=== PATIENT | male | born 1990 | race Hispanic/Latino ===

== ENCOUNTER 2017-02-19 14:34 | Observation (INO) | payer OTHER ==
[2017-02-19] MEDS ORDERED: Sodium Chloride 0.9% 1,000 ML IV STA (15:41)
--- NOTE | 2017-02-19 15:46 | ED PDOC ---
HPI: Chest Pain Time Seen by Provider: 02/19/17 15:33 Chief Complaint (Nursing): Palpitations Chief Complaint (Provider): Chest tightness and palpitations History Per: Patient History/Exam Limitations: no limitations Onset/Duration Of Symptoms: Hrs Additional Complaint(s): Patient is a 26 y/o male with no significant past medical history presenting to the emergency department for chest tightness and palpitations since this morning. Reports taking an additional 50 mg dose of Adderall in order to complete a work project. Denies suicidal ideation, other ingestions, or other complaints. PCP: none provided. Past Medical History Reviewed: Historical Data, Nursing Documentation, Vital Signs Vital Signs: Last Vital Signs Temp 97.2 F L 02/19/17 14:50 Pulse 113 H 02/19/17 14:50 Resp 16 02/19/17 14:50 BP 124/78 02/19/17 14:50 Pulse Ox 97 02/19/17 15:49 - Medical History PMH: No Chronic Diseases - Surgical History Surgical History: No Surg Hx - Family History Family History: States: Unknown Family Hx - Home Medications Home Medications: Ambulatory Orders Medication Instructions Recorded Dextroamphetamine/Amphetamine 20 mg PO DAILY 02/19/17 [Adderall Xr 20 mg Capsule] Finasteride [Propecia] 1 mg PO DAILY 02/19/17 Ibuprofen [Motrin Tab] 800 mg PO Q8H PRN 02/19/17 - Allergies Allergies/Adverse Reactions: Allergies Allergy/AdvReac Type Severity Reaction Status Date / Time No Known Allergies Allergy Verified 02/19/17 14:50 Review of Systems ROS Statement: Except As Marked, All Systems Reviewed And Found Negative Cardiovascular: Positive for: Chest Pain (tightness), Palpitations Psych: Negative for: Suicidal ideation Physical Exam - Reviewed Nursing Documentation Reviewed: Yes Vital Signs Reviewed: Yes - Physical Exam Appears: Positive for: Well, Non-toxic, No Acute Distress Head Exam: Positive for: ATRAUMATIC, NORMAL INSPECTION, NORMOCEPHALIC Skin: Positive for: Normal Color, Warm, Dry Eye Exam: Positive for: Normal appearance Neck: Positive for: Normal Cardiovascular/Chest: Positive for: Regular Rate, Rhythm. Negative for: Murmur Respiratory: Positive for: Normal Breath Sounds. Negative for: Accessory Muscle Use, Respiratory Distress Gastrointestinal/Abdominal: Positive for: Normal Exam, Soft. Negative for: Tenderness Extremity: Positive for: Normal ROM. Negative for: Pedal Edema, Swelling Neurologic/Psych: Positive for: Alert, Oriented (x3). Negative for: Motor/ Sensory Deficits - Laboratory Results Result Diagrams: 02/19/17 16:13 02/19/17 16:13 - ECG O2 Sat by Pulse Oximetry: 97 (RA) Pulse Ox Interpretation: Normal Medical Decision Making Medical Decision Making: Time: 1539 Initial Impression: Chest tightness and palpitations Initial Plan: EKG Acetaminophen CMP Urine Drug Screening Salicylate Troponin ED Urine Dipstick CBC Prothrombin Chest x-ray Normal Saline 1 L IV Reevaluation Scribe Attestation: Documented by Renay Love, acting as a scribe for Pranav Wiggins MD. Provider Scribe Attestation: All medical record entries made by the Scribe were at my direction and personally dictated by me. I have reviewed the chart and agree that the record accurately reflects my personal performance of the history, physical exam, medical decision making, and the department course for this patient. I have also personally directed, reviewed, and agree with the discharge instructions and disposition. Disposition - Clinical Impression Clinical Impression: Chest pain - Patient ED Disposition Is Patient to be Admitted: Yes - Disposition Disposition Time: 17:05 Condition: FAIR Forms: [employer] (Estonian) - Pt Status Changed To: Hospital Disposition Of: Observation - POA Present On Arrival: None
[2017-02-19 16:38] LABS: BASO # 0.1 K/uL (0.0-0.2); EOS # 0.1 K/uL (0.0-0.7); EOS % 1.9 % (0.0-4.0); HEMATOCRIT 47.2 % (35.0-51.0); LYMPH # 2.6 K/uL (1.0-4.3); LYMPH % 34.2 % (20.0-40.0); MEAN CELL VOLUME 88.5 fl (80.0-94.0); MEAN CORPUSCULAR HEMOGLOBIN 30.3 pg (27.0-31.0); MEAN CORPUSCULAR HGB CONC 34.3 g/dL (33.0-37.0); MEAN PLATELET VOLUME 7.3 fl (7.2-11.7); MONO # 0.7 K/uL (0.0-0.8); MONO % 8.7 % (0.0-10.0); NEUT # 4.1 K/uL (1.8-7.0); NEUT % 54.2 % (50.0-75.0); NRBC % 0.1 % (0.0-0.0); RED CELL DISTRIBUTION WIDTH 12.9 % (11.5-14.5); WHITE BLOOD COUNT 7.6 K/uL (4.8-10.8)
[2017-02-19 16:50] LABS: ALCOHOL SERUM < 10 mg/dl (0-10); ALKALINE PHOSPHATASE 78 U/L (38-126); ALT/SGPT 37 U/L (21-72); AST/SGOT 34 U/L (17-59); BILIRUBIN,TOTAL 1.2 mg/dl (0.2-1.3); BLOOD UREA NITROGEN 25 mg/dl (9-20); CALCIUM 10.4 mg/dL (8.4-10.2); CARBON DIOXIDE 27 mmol/L (22-30); CHLORIDE 98 mmol/L (98-107); GFR AFRICAN-AMERICAN > 60; GLUCOSE,RANDOM 90 mg/dL (75-110); POTASSIUM 4.1 MMOL/L (3.6-5.0); SODIUM 140 mmol/l (132-148); TOTAL PROTEIN 8.7 G/DL (6.3-8.2)
[2017-02-19 17:18] LABS: ALB/GLOB RATIO 1.4 (1.0-2.1)
--- NOTE | 2017-02-19 20:54 | CON ---
CARDIOLOGY CONSULTATION REASON FOR CONSULTATION: Chest discomfort. HISTORY OF PRESENT ILLNESS: The patient is 26 years old white male who takes Adderall for attention deficit disorder 20 mg pill daily. 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 The patient felt palpitation and skipped beats with chest discomfort and presented to the emergency room. The patient is unaware of any prior cardiac history. The patient does not take any other medications except finasteride for hair loss. The patient does not take any unusual large amount of caffeine. SOCIAL HISTORY: The patient is a nonsmoker, nondrinker. He is single. He works with [employer]. MEDICATIONS: The patient is currently on normal saline infusion at 200 mL an hour. Home medications include finasteride 1 mg orally daily, Adderall 20 mg daily and ibuprofen 800 mg q. 8 hours p.r.n. REVIEW OF SYSTEMS: No nausea or vomiting. No fever or chills. No syncope or fall. PHYSICAL EXAMINATION: GENERAL: The patient is a young male, who does not appear to be in any distress. VITAL SIGNS: Blood pressure 124/78, heart rate 113, temperature 97.2, respirations 16. HEENT: Normocephalic. NECK: No JVD. CHEST: Clear. HEART: S1 and S2 regular. ABDOMEN: Soft. EXTREMITIES: No edema. LABORATORY DATA: CBC: WBC 7.6, hemoglobin 16.2, hematocrit 47.2, platelet count 181,000. SMA-7: Sodium 140, potassium 4.1, chloride 98, CO2 of 27, glucose 90, BUN 25, creatinine 1.1. One set of troponin is negative. PT and INR are within normal limit. EKG revealed sinus rhythm at a rate of 65 with sinus arrhythmia, possible left atrial enlargement, early repolarization pattern. ASSESSMENT: 1. Sinus tachycardia. This has improved after hydration. 2. Overdose of Adderall. Already the patient took a total of 5 tablets of 20 mg tablets and instead of once a day over the past 24 hours. 3. Atypical chest pain. RECOMMENDATIONS: Continue current IV hydration. Obtain urine for drug screen and schedule the patient for an echocardiogram. Continue telemetry monitoring overnight. Adriano Morris MD
[2017-02-20 05:57] LABS: HEMATOCRIT 42.6 % (35.0-51.0); MEAN CELL VOLUME 89.6 fl (80.0-94.0); MEAN CORPUSCULAR HGB CONC 33.5 g/dL (33.0-37.0); RED CELL DISTRIBUTION WIDTH 12.7 % (11.5-14.5); WHITE BLOOD COUNT 6.1 K/uL (4.8-10.8)
[2017-02-20 06:19] LABS: BLOOD UREA NITROGEN 20 mg/dl (9-20); CARBON DIOXIDE 28 mmol/L (22-30); CHLORIDE 104 mmol/L (98-107); GFR AFRICAN-AMERICAN > 60; GLUCOSE,RANDOM 90 mg/dL (75-110); POTASSIUM 4.1 MMOL/L (3.6-5.0); SODIUM 141 mmol/l (132-148)
[2017-02-20 06:48] LABS: THYROID STIMULATING HORMONE 1.56 mIU/ML (0.46-4.68)
[2017-02-20 08:23] VITALS: RESP 20
--- NOTE | 2017-02-20 08:42 | CARD ---
APPROVED REPORT EKG Measurement Heart [id number] 150P76 [id number] <Conclusion> Normal sinus rhythm Rightward axis Early repolarization Borderline ECG
--- NOTE | 2017-02-20 08:50 | CARD ---
APPROVED REPORT EKG Measurement Heart [id number] SD 140P78 [id number] <Conclusion> Sinus rhythm with marked sinus arrhythmia Possible Left atrial enlargement Rightward axis ST elevation, consider early repolarization, pericarditis, or injury Nonspecific ST abnormality Abnormal ECG
--- NOTE | 2017-02-20 08:54 | RAD ---
HISTORY: chest pain COMPARISON: No prior. TECHNIQUE: Chest PA and lateral FINDINGS: LUNGS: No active pulmonary disease. PLEURA: No significant pleural effusion identified. No pneumothorax apparent. CARDIOVASCULAR: Normal. OSSEOUS STRUCTURES: No significant abnormalities. VISUALIZED UPPER ABDOMEN: Normal. OTHER FINDINGS: None. IMPRESSION: No acute cardiopulmonary disease appreciated.
--- NOTE | 2017-02-20 11:57 | CP.PCM.HP ---
History of Present Illness - History of Present Illness History of Present Illness: CC: Chest Pain HPI: a 26 y/o male with no significant past medical history presenting to the emergency department for chest tightness and palpitations since this morning. Reports taking an additional 50 mg dose of Adderall in order to complete a work project. Denies suicidal ideation, other ingestions, or other complaints. ACS Ruled out. Present on Admission - Present on Admission Any Indicators Present on Admission: No Review of Systems - Review of Systems All systems: reviewed and no additional remarkable complaints except Past Patient History - Past Medical History & Family History Past Medical History?: Yes Past Family History: Reviewed and not pertinent - Past Social History Smoking Status: Never Smoked Alcohol: None Drugs: Denies - NEUROLOGICAL Other/Comment: ADHD - MUSCULOSKELETAL/RHEUMATOLOGICAL Hx Falls: No - PSYCHIATRIC Hx Substance Use: Yes (cocaine) Other/Comment: ADHD - SURGICAL HISTORY Other/Comment: Rhinoplasty - ANESTHESIA Hx Anesthesia: Yes Hx Anesthesia Reactions: No Meds Allergies/Adverse Reactions: Allergies Allergy/AdvReac Type Severity Reaction Status Date / Time No Known Allergies Allergy Verified 02/19/17 14:50 Physical Exam - Constitutional Appears: Well, No Acute Distress - Head Exam Head Exam: ATRAUMATIC, NORMAL INSPECTION, NORMOCEPHALIC - Eye Exam Eye Exam: EOMI, Normal appearance, PERRL Pupil Exam: NORMAL ACCOMODATION, PERRL - ENT Exam ENT Exam: Mucous Membranes Moist, Normal Exam - Neck Exam Neck exam: Positive for: Full Rom, Normal Inspection - Respiratory Exam Respiratory Exam: Clear to Auscultation Bilateral, NORMAL BREATHING PATTERN - Cardiovascular Exam Cardiovascular Exam: REGULAR RHYTHM, +S1, +S2 - GI/Abdominal Exam GI & Abdominal Exam: Normal Bowel Sounds, Soft. absent: Tenderness - Back Exam Back exam: NORMAL INSPECTION. absent: CVA tenderness (L), CVA tenderness (R) - Neurological Exam Neurological exam: Alert, CN II-XII Intact, Normal Gait, Oriented x3, Reflexes Normal - Psychiatric Exam Psychiatric exam: Normal Affect, Normal Mood - Skin Skin Exam: Dry, Intact, Normal Color, Warm Results - Vital Signs Recent Vital Signs: Last Vital Signs Temp 97.9 F 02/20/17 08:00 Pulse 66 02/20/17 08:00 Resp 20 02/20/17 08:00 BP 103/64 02/20/17 08:00 Pulse Ox 99 02/20/17 08:00 - Labs Result Diagrams: 02/20/17 05:00 02/20/17 05:00 Labs: Laboratory Results - last 24 hr 02/19/17 02/19/17 02/19/17 16:13 16:13 16:13 WBC 7.6 RBC 5.33 Hgb 16.2 Hct 47.2 MCV 88.5 MCH 30.3 MCHC 34.3 RDW 12.9 Plt Count 281 MPV 7.3 Neut % (Auto) 54.2 Lymph % (Auto) 34.2 [place] % (Auto) 8.7 Eos % (Auto) 1.9 Baso % (Auto) 1.0 Neut # 4.1 Lymph # 2.6 [place] # 0.7 Eos # 0.1 Baso # 0.1 PT INR Sodium 140 Potassium 4.1 Chloride 98 Carbon Dioxide 27 Anion Gap 19 BUN 25 H Creatinine 1.1 Est GFR ( Amer) > 60 Est GFR (Non-Af Amer) > 60 Random Glucose 90 Calcium 10.4 H Total Bilirubin 1.2 AST 34 ALT 37 Alkaline Phosphatase 78 Troponin I < 0.0120 Total Protein 8.7 H Albumin 5.1 H Globulin 3.7 Albumin/Globulin Ratio 1.4 TSH 3rd Generation Salicylates Urine Opiates Screen Negative Urine Methadone Screen Negative Acetaminophen Ur Barbiturates Screen Negative Ur Phencyclidine Scrn Negative Ur Amphetamines Screen Positive H U Benzodiazepines Scrn Negative U Oth Cocaine Metabols Negative U Cannabinoids Screen Negative Alcohol, Quantitative < 10 02/19/17 02/19/17 02/20/17 16:13 16:13 00:30 WBC RBC Hgb Hct MCV MCH MCHC RDW Plt Count MPV Neut % (Auto) Lymph % (Auto) [place] % (Auto) Eos % (Auto) Baso % (Auto) Neut # Lymph # [place] # Eos # Baso # PT 12.8 INR 1.2 Sodium Potassium Chloride Carbon Dioxide Anion Gap BUN Creatinine Est GFR ( Amer) Est GFR (Non-Af Amer) Random Glucose Calcium Total Bilirubin AST ALT Alkaline Phosphatase Troponin I < 0.0120 Total Protein Albumin Globulin Albumin/Globulin Ratio TSH 3rd Generation Salicylates < 1.0 Urine Opiates Screen Urine Methadone Screen Acetaminophen < 10.0 L Ur Barbiturates Screen Ur Phencyclidine Scrn Ur Amphetamines Screen U Benzodiazepines Scrn U Oth Cocaine Metabols U Cannabinoids Screen Alcohol, Quantitative 02/20/17 02/20/17 02/20/17 05:00 05:00 09:00 WBC 6.1 RBC 4.75 Hgb 14.2 D Hct 42.6 MCV 89.6 MCH 30.0 MCHC 33.5 RDW 12.7 Plt Count 230 MPV Neut % (Auto) Lymph % (Auto) [place] % (Auto) Eos % (Auto) Baso % (Auto) Neut # Lymph # [place] # Eos # Baso # PT INR Sodium 141 Potassium 4.1 Chloride 104 Carbon Dioxide 28 Anion Gap 13 BUN 20 Creatinine 0.9 Est GFR ( Amer) > 60 Est GFR (Non-Af Amer) > 60 Random Glucose 90 Calcium 9.0 Total Bilirubin AST ALT Alkaline Phosphatase Troponin I < 0.0120 Total Protein Albumin Globulin Albumin/Globulin Ratio TSH 3rd Generation 1.56 Salicylates Urine Opiates Screen Urine Methadone Screen Acetaminophen Ur Barbiturates Screen Ur Phencyclidine Scrn Ur Amphetamines Screen U Benzodiazepines Scrn U Oth Cocaine Metabols U Cannabinoids Screen Alcohol, Quantitative - EKG Data EKG Interpreted by: Myself EKG shows normal: Sinus rhythm - EKG Data EKG comments: ?Repolarization. - Imaging and Cardiology Chest x-ray Status: Report reviewed by me Additional comment: IMPRESSION: No acute cardiopulmonary disease appreciated. Assessment & Plan (1) Chest pain Assessment and Plan: ACS ruled out Abnormal EKG Echocadiogram Telemonitoring Status: Acute (2) ADHD Assessment and Plan: [place] Continue to Status: Acute
[2017-02-20 13:32] VITALS: BP 99/58; PULSE 59; TEMP 98.1; O2SAT 95
--- NOTE | 2017-02-20 14:08 | CARD ---
APPROVED REPORT EXAM: Two-dimensional and M-mode echocardiogram with Doppler and color Doppler. Other Information Quality : GoodRhythm : NSR INDICATION Palpitations 2D DIMENSIONS IVSd1.23 (0.7-1.1cm)LVDd3.99 (3.9-5.9cm) LVOT Diameter2.04 (1.8-2.4cm)PWd0.96 (0.7-1.1cm) IVSs0.90 (0.8-1.2cm)LVDs4.20 (2.5-4.0cm) FS (%) 5.3 %PWs0.78 (0.8-1.2cm) M-Mode DIMENSIONS Left Atrium (MM)3.64 (2.5-4.0cm)IVSd0.88 (0.7-1.1cm) Aortic Root2.78 (2.2-3.7cm)LVDd4.99 (4.0-5.6cm) Aortic Cusp Exc.2.15 (1.5-2.0cm)PWd0.77 (0.7-1.1cm) IVSs1.35 cmFS (%) 41 % LVDs2.95 (2.0-3.8cm)PWs1.41 cm Mitral Valve E/A ratio0.0 TDI E/Lateral E'0.0E/Medial E'0.0 Pulmonary Valve PV Peak Ybivncly709.6cm/s Tricuspid Valve TR Peak [id number] [id number] Peak Gr.14mmHg [id number] LEFT VENTRICLE The left ventricle is normal in size. There is normal left ventricular wall thickness. The left ventricular function is normal. The left ventricular ejection fraction is - 60%. There is normal LV segmental wall motion. The left ventricular diastolic function is normal. No left ventricle thrombus noted on this study. There is no ventricular septal defect visualized. There is no left ventricular aneurysm. There is no mass noted in the left ventricle. RIGHT VENTRICLE The right ventricle is normal size. There is normal right ventricular wall thickness. The right ventricular systolic function is normal. ATRIA The left atrium size is normal. There is no thrombus suspected in the left atrium. The right atrium size is normal. The interatrial septum is intact with no evidence for an atrial septal defect. AORTIC VALVE The aortic valve is normal in structure. No aortic regurgitation is present. There is no aortic valvular stenosis. There is no aortic valvular vegetation. MITRAL VALVE The mitral valve is normal in structure. There is no evidence of mitral valve prolapse. There is no mitral valve stenosis. Mitral regurgitation is trace. TRICUSPID VALVE The tricuspid valve is normal in structure. There is trace tricuspid regurgitation. Right ventricular systolic pressure is estimated at 23 mmHg. There is no tricuspid valve prolapse or vegetation. There is no tricuspid valve stenosis. PULMONIC VALVE The pulmonary valve is normal in structure. There is no pulmonic valvular regurgitation. GREAT VESSELS The aortic root is normal in size. The IVC is normal in size and collapses >50% with inspiration. PERICARDIAL EFFUSION The pericardium appears normal. There is no pleural effusion. <Conclusion> The left ventricle is normal in size and wall thickness. The left ventricular function is normal. The left ventricular ejection fraction is - 60%. The left atrium, right ventricle and right atrium are normal in size. The mitral, aortic and tricuspid valves are normal. There is trace mitral regurgitation and trace tricuspid regurgitation.
--- NOTE | 2017-02-20 14:36 | PN ---
DATE: SUBJECTIVE: The patient denies any chest pain or palpitation. No reported arrhythmia. PHYSICAL EXAMINATION: VITAL SIGNS: Blood pressure 103/64, heart rate 66, temperature 97.9, respirations 20. HEENT: Normocephalic. NECK: No JVD. CHEST: Clear. HEART: S1 and S2, regular. ABDOMEN: Soft. EXTREMITIES: No edema. LABORATORY DATA: Urine drug screen is positive for amphetamines, which could be related to the patient's medication, Adderall. Today's SMA-7 is entirely within normal limits. Three sets of troponins are negative. Today's CBC is within normal limits. Today's EKG could not be accessed on the [facility]. ASSESSMENT: 1. Atypical chest pain, myocardial infarction was ruled out. 2. Status post overdose on Adderall. RECOMMENDATIONS: Continue current telemetry observation. We will review today's EKG once it is accessible on [facility] and follow up echocardiographic study once it is performed. Adriano Morris MD
--- NOTE | 2017-02-21 09:02 | CARD ---
APPROVED REPORT EKG Measurement Heart [id number] DE 148P74 [id number] <Conclusion> Normal sinus rhythm with sinus arrhythmia Rightward axis ST elevation, consider early repolarization, pericarditis, or injury Nonspecific ST abnormality Abnormal ECG
--- NOTE | 2017-02-22 01:04 | CP.PCM.DIS ---
Provider - Provider Date of Admission: 02/19/17 16:51 Attending physician: Dinesh Lares MD Time Spent in preparation of Discharge (in minutes): 25 Diagnosis - Discharge Diagnosis (1) Chest pain Status: Acute (2) ADHD Status: Acute Hospital Course - Lab Results Lab Results: Most Recent Lab Values WBC 6.1 K/uL (4.8-10.8) 02/20/17 05:00 RBC 4.75 Mil/uL (4.40-5.90) 02/20/17 05:00 Hgb 14.2 g/dL (12.0-18.0) D 02/20/17 05:00 Hct 42.6 % (35.0-51.0) 02/20/17 05:00 MCV 89.6 fl (80.0-94.0) 02/20/17 05:00 MCH 30.0 pg (27.0-31.0) 02/20/17 05:00 MCHC 33.5 g/dL (33.0-37.0) 02/20/17 05:00 RDW 12.7 % (11.5-14.5) 02/20/17 05:00 Plt Count 230 K/uL (130-400) 02/20/17 05:00 MPV 7.3 fl (7.2-11.7) 02/19/17 16:13 Neut % (Auto) 54.2 % (50.0-75.0) 02/19/17 16:13 Lymph % (Auto) 34.2 % (20.0-40.0) 02/19/17 16:13 [place] % (Auto) 8.7 % (0.0-10.0) 02/19/17 16:13 Eos % (Auto) 1.9 % (0.0-4.0) 02/19/17 16:13 Baso % (Auto) 1.0 % (0.0-2.0) 02/19/17 16:13 Neut # 4.1 K/uL (1.8-7.0) 02/19/17 16:13 Lymph # 2.6 K/uL (1.0-4.3) 02/19/17 16:13 [place] # 0.7 K/uL (0.0-0.8) 02/19/17 16:13 Eos # 0.1 K/uL (0.0-0.7) 02/19/17 16:13 Baso # 0.1 K/uL (0.0-0.2) 02/19/17 16:13 PT 12.8 Seconds (9.8-13.1) 02/19/17 16:13 INR 1.2 (0.9-1.2) 02/19/17 16:13 Sodium 141 mmol/l (132-148) 02/20/17 05:00 Potassium 4.1 MMOL/L (3.6-5.0) 02/20/17 05:00 Chloride 104 mmol/L (98-107) 02/20/17 05:00 Carbon Dioxide 28 mmol/L (22-30) 02/20/17 05:00 Anion Gap 13 (10-20) 02/20/17 05:00 BUN 20 mg/dl (9-20) 02/20/17 05:00 Creatinine 0.9 mg/dl (0.8-1.5) 02/20/17 05:00 Est GFR ( Amer) > 60 02/20/17 05:00 Est GFR (Non-Af Amer) > 60 02/20/17 05:00 Random Glucose 90 mg/dL (75-110) 02/20/17 05:00 Calcium 9.0 mg/dL (8.4-10.2) 02/20/17 05:00 Total Bilirubin 1.2 mg/dl (0.2-1.3) 02/19/17 16:13 AST 34 U/L (17-59) 02/19/17 16:13 ALT 37 U/L (21-72) 02/19/17 16:13 Alkaline Phosphatase 78 U/L (38-126) 02/19/17 16:13 Troponin I < 0.0120 ng/mL (0.00-0.120) 02/20/17 09:00 Total Protein 8.7 G/DL (6.3-8.2) H 02/19/17 16:13 Albumin 5.1 g/dL (3.5-5.0) H 02/19/17 16:13 Globulin 3.7 gm/dL (2.2-3.9) 02/19/17 16:13 Albumin/Globulin Ratio 1.4 (1.0-2.1) 02/19/17 16:13 TSH 3rd Generation 1.56 mIU/ML (0.46-4.68) 02/20/17 05:00 Salicylates < 1.0 mg/dl 02/19/17 16:13 Urine Opiates Screen Negative (NEGATIVE) 02/19/17 16:13 Urine Methadone Screen Negative (NEGATIVE) 02/19/17 16:13 Acetaminophen < 10.0 ug/ml (10.0-30.0) L 02/19/17 16:13 Ur Barbiturates Screen Negative (NEGATIVE) 02/19/17 16:13 Ur Phencyclidine Scrn Negative (NEGATIVE) 02/19/17 16:13 Ur Amphetamines Screen Positive (NEGATIVE) H 02/19/17 16:13 U Benzodiazepines Scrn Negative (NEGATIVE) 02/19/17 16:13 U Oth Cocaine Metabols Negative (NEGATIVE) 02/19/17 16:13 U Cannabinoids Screen Negative (NEGATIVE) 02/19/17 16:13 Alcohol, Quantitative < 10 mg/dl (0-10) 02/19/17 16:13 Discharge Exam - Head Exam Head Exam: ATRAUMATIC, NORMAL INSPECTION, NORMOCEPHALIC Discharge Plan - Follow Up Plan Condition: STABLE Disposition: HOME/ ROUTINE Patient education suggested?: Yes
== END 2017-02-20 17:19 | disposition home or self-care (01) ==
LOC: H.ER 14:34 → H.ERHOLD 16:51 → H.TEL 22:10
PROVIDERS: ADMIT Internal Medicine; ATTEND Internal Medicine
DX: R07.89 Other chest pain (principal); F90.9 Attention-deficit hyperactivity disorder, unspecified type; R00.0 Tachycardia, unspecified; T43.621A Poisoning by amphetamines, accidental (unintentional), initial encounter
CPT/HCPCS: 36415; 71020; 80048; 80053; 80320; 80324; 80329; 80345; 80346; 80349; 80353; 80358; 80361; 83992; 84443; 84484; 85025; 85027; 85610; 93005; 93306; 99285; G0378; J7040